=== PATIENT | female | born 1965 | race Two or more races ===

== ENCOUNTER 2016-11-22 00:19 | Emergency (ER) | payer MEDICAID ==
[~2016-11-22] VITALS: Ht 162.6 cm; Wt 113.4 kg
[~2016-11-22 00:19] MED LIST: AMIO200T2 PO; ATOR80TA PO; BENA40TA2 PO; CYCL5TAB PO; HYDR-3326 PO; HYDR25TA4 PO; LISI40TA4 PO; METF500T4 PO; METH4TAB16 PO; NITR0.4T6 SL; Nortriptyline Hcl PO; PRAV40TA3 PO; RIVA10TA PO
[2016-11-22 00:34] VITALS: BP 148/95
== END 2016-11-22 03:04 | disposition left against medical advice (07) ==
LOC: ER 00:19
DX: Z53.21 Procedure and treatment not carried out due to patient leaving prior to being seen by health care provider (principal)
CPT/HCPCS: A4606; Z7610

== ENCOUNTER 2016-12-05 23:50 | Emergency (ER) | payer MEDICAID ==
[~2016-12-05] VITALS: Ht 162.6 cm; Wt 112.5 kg
[2016-12-06] MEDS ORDERED: ASPIRIN 81 MG TAB.CHEW ONE (00:20)
[2016-12-06] MEDS ORDERED: ASPIRIN 81 MG TAB.CHEW PO ONE (00:30)
[2016-12-06 00:39] LABS: BASOPHILS # (AUTO) 0.1 /CMM (0.0-0.2); BASOPHILS % (AUTO) 0.7 % (0.0-2.0); DIFF TOTAL % 100 %; EOSINOPHILS # (AUTO) 0.2 /CMM (0.0-0.7); EOSINOPHILS % (AUTO) 2.6 % (0.0-6.0); HEMATOCRIT 39 % (33-45); HEMOGLOBIN 12.7 g/dL (11.5-14.8); LYMPHOCYTES # (AUTO) 2.5 /CMM (0.8-4.8); LYMPHOCYTES % (AUTO) 27.6 % (20.0-44.0); MEAN CORPUSCULAR HEMOGLOBIN 26 PG (26.0-33.0); MEAN CORPUSCULAR HGB CONC 33 g/dl (31.0-36.0); MEAN CORPUSCULAR VOLUME 79 fL (82-100); MONOCYTES # (AUTO) 0.8 /CMM (0.1-1.30); MONOCYTES % (AUTO) 8.9 % (2.0-12.0); NEUTROPHILS # (AUTO) 5.4 /CMM (1.8-8.9); NEUTROPHILS % (AUTO) 60.2 % (43.0-81.0); PLATELET COUNT (AUTO) 261 /CMM (150-450); RED BLOOD CELL COUNT(AUTO) 4.89 MIL/uL (4.0-5.2); WHITE BLOOD COUNT (AUTO) 8.9 K/uL (4.3-11.0)
[2016-12-06 00:50] LABS: ANION GAP 14 (5-14); CARBON DIOXIDE 26 mmol/L (21-32); CHLORIDE 101 mmol/L (98-107); CREATININE 0.7 mg/dL (0.6-1.3); GFR 88 mL/min (>60); GLUCOSE 136 mg/dL (74-106); POTASSIUM 3.4 mmol/L (3.5-5.1); SODIUM SERUM 137 mmol/L (136-145); UREA NITROGEN, BLOOD 16 mg/dL (7-18)
[2016-12-06 00:55] LABS: INR 1.29 (0.87-1.13)
[2016-12-06 00:59] LABS: TROPONIN I < 0.017 ng/mL (0.00-0.056)
[2016-12-06 04:21] VITALS: BP 131/95
== END 2016-12-06 04:21 | disposition home or self-care (01) ==
LOC: ER 23:53
DX: R07.89 Other chest pain (principal); R94.31 Abnormal electrocardiogram [ECG] [EKG]; I10 Essential (primary) hypertension; F41.9 Anxiety disorder, unspecified; E11.9 Type 2 diabetes mellitus without complications; I48.0 Paroxysmal atrial fibrillation; E66.9 Obesity, unspecified
CPT/HCPCS: 36415; 71010; 80048; 84484 ×2; 85025; 85730; 93005 ×2; 99285; A4606; Z7610

== ENCOUNTER 2016-12-19 09:12 | Emergency (ER) | payer MEDICAID ==
[~2016-12-19] VITALS: Ht 172.7 cm; Wt 112.5 kg
[2016-12-19] MEDS ORDERED: HYDROCODONE/APAP 5/325MG 1 EACH TABLET ONE (09:49)
[2016-12-19] MEDS ORDERED: HYDROCODONE/APAP 5/325MG 1 EACH TABLET PO ONE (10:00)
[2016-12-19 11:31] VITALS: BP 146/97
== END 2016-12-19 11:31 | disposition home or self-care (01) ==
LOC: ER 09:15
DX: M25.461 Effusion, right knee (principal); M17.11 Unilateral primary osteoarthritis, right knee; I10 Essential (primary) hypertension; E11.9 Type 2 diabetes mellitus without complications; I48.91 Unspecified atrial fibrillation
CPT/HCPCS: 73564-TC; 93971-TC; A4606; Z7610

== ENCOUNTER 2017-01-09 23:41 | Emergency (ER) | payer MEDICAID ==
[~2017-01-09] VITALS: Ht 157.5 cm; Wt 81.6 kg
[2017-01-09] MEDS ORDERED: NITROGLYCERIN 0.4 MG/TAB BOTTLE ONE (23:59)
[2017-01-09] MEDS ORDERED: ASPIRIN 81 MG TAB.CHEW ONE (23:59)
[2017-01-10] MEDS ORDERED: NITROGLYCERIN 0.4 MG/TAB BOTTLE SL ONE
[2017-01-10] MEDS ORDERED: ASPIRIN 81 MG TAB.CHEW PO ONE
[2017-01-10 00:09] LABS: BASOPHILS % (AUTO) 0.3 % (0.0-2.0); DIFF TOTAL % 100 %; EOSINOPHILS # (AUTO) 0.2 /CMM (0.0-0.7); EOSINOPHILS % (AUTO) 2.6 % (0.0-6.0); HEMATOCRIT 41 % (33-45); HEMOGLOBIN 13.1 g/dL (11.5-14.8); LYMPHOCYTES # (AUTO) 2.3 /CMM (0.8-4.8); MEAN CORPUSCULAR HEMOGLOBIN 26 PG (26.0-33.0); MEAN CORPUSCULAR HGB CONC 32 g/dl (31.0-36.0); MEAN CORPUSCULAR VOLUME 79 fL (82-100); MONOCYTES # (AUTO) 0.6 /CMM (0.1-1.30); MONOCYTES % (AUTO) 10.8 % (2.0-12.0); NEUTROPHILS # (AUTO) 2.8 /CMM (1.8-8.9); NEUTROPHILS % (AUTO) 47.3 % (43.0-81.0); PLATELET COUNT (AUTO) 242 /CMM (150-450)
[2017-01-10 00:20] LABS: ANION GAP 11 (5-14); CALCIUM, SERUM 8.8 mg/dL (8.5-10.1); CARBON DIOXIDE 32 mmol/L (21-32); CHLORIDE 102 mmol/L (98-107); CREATININE 0.7 mg/dL (0.6-1.3); GFR 88 mL/min (>60); GLUCOSE 112 mg/dL (74-106); SODIUM SERUM 141 mmol/L (136-145); UREA NITROGEN, BLOOD 10 mg/dL (7-18)
[2017-01-10] MEDS ORDERED: MORPHINE SULFATE INJ 4 MG/ML DISP.SYRIN ONE (00:23)
[2017-01-10] MEDS ORDERED: ONDANSETRON HCL/PF 4 MG/2 ML VIAL ONE (00:23)
[2017-01-10 00:27] LABS: TROPONIN I < 0.017 ng/mL (0.00-0.056)
[2017-01-10 00:29] LABS: INR 0.96 (0.87-1.13); PROTHROMBIN TIME 10.4 SECS (9.5-12.7)
[2017-01-10] MEDS ORDERED: ONDANSETRON HCL/PF 4 MG/2 ML VIAL IV ONE (00:30)
[2017-01-10] MEDS ORDERED: MORPHINE SULFATE INJ 2 MG/ML DISP.SYRIN IV ONE (00:30)
[2017-01-10] MEDS ORDERED: POTASSIUM CHLORIDE 20 MEQ TAB.PRT.SR PO ONE ×2 (00:56→01:00)
[2017-01-10 01:36] VITALS: BP 129/68
== END 2017-01-10 01:37 | disposition home or self-care (01) ==
LOC: ER 23:42
DX: F41.9 Anxiety disorder, unspecified (principal); R07.89 Other chest pain; E11.9 Type 2 diabetes mellitus without complications; I10 Essential (primary) hypertension; I48.0 Paroxysmal atrial fibrillation; Z79.01 Long term (current) use of anticoagulants; E66.9 Obesity, unspecified
CPT/HCPCS: 36415; 71010; 80048; 82962; 84484; 85025; 85730; 93005; 99285; A4606 ×2; J2270; J2405; Z7610 ×2

== ENCOUNTER 2017-01-23 09:09 | Inpatient (IN) | payer MEDICAID ==
[~2017-01-23] VITALS: Ht 154.9 cm; Wt 106.1 kg
[2017-01-23] MEDS ORDERED: ASPIRIN 325 MG TABLET PO ONE (09:30)
[2017-01-23] MEDS ORDERED: NITROGLYCERIN PACKET 1 GM PACKET TD ONE (09:30)
[2017-01-23] MEDS ORDERED: ASPIRIN 325 MG TABLET ONE (09:31)
[2017-01-23] MEDS ORDERED: NITROGLYCERIN PACKET 1 GM PACKET ONE (09:31)
[2017-01-23 09:43] LABS: ANION GAP 9 (5-14); BASOPHILS % (AUTO) 0.5 % (0.0-2.0); CALCIUM, SERUM 8.8 mg/dL (8.5-10.1); CARBON DIOXIDE 31 mmol/L (21-32); CHLORIDE 104 mmol/L (98-107); CREATININE 0.7 mg/dL (0.6-1.3); DIFF TOTAL % 100 %; EOSINOPHILS # (AUTO) 0.1 /CMM (0.0-0.7); GFR 87 mL/min (>60); GLUCOSE 112 mg/dL (74-106); HEMATOCRIT 36 % (33-45); HEMOGLOBIN 11.8 g/dL (11.5-14.8); LYMPHOCYTES % (AUTO) 27.6 % (20.0-44.0); MEAN CORPUSCULAR HEMOGLOBIN 26 PG (26.0-33.0); MEAN CORPUSCULAR HGB CONC 33 g/dl (31.0-36.0); MEAN CORPUSCULAR VOLUME 80 fL (82-100); MONOCYTES # (AUTO) 0.6 /CMM (0.1-1.30); MONOCYTES % (AUTO) 8.2 % (2.0-12.0); NEUTROPHILS # (AUTO) 4.6 /CMM (1.8-8.9); NEUTROPHILS % (AUTO) 61.7 % (43.0-81.0); PLATELET COUNT (AUTO) 256 /CMM (150-450); POTASSIUM 3.5 mmol/L (3.5-5.1); RED BLOOD CELL COUNT(AUTO) 4.54 MIL/uL (4.0-5.2); SODIUM SERUM 141 mmol/L (136-145); UREA NITROGEN, BLOOD 16 mg/dL (7-18); WHITE BLOOD COUNT (AUTO) 7.4 K/uL (4.3-11.0)
[2017-01-23 09:52] LABS: TROPONIN I < 0.017 ng/mL (0.00-0.056)
[2017-01-23 10:10] LABS: INR 1.1 (0.87-1.13); PROTHROMBIN TIME 11.9 SECS (9.5-12.7)
[2017-01-23] MEDS ORDERED: METO25TA6 PO (10:10)
[2017-01-23] MEDS ORDERED: AMIO200T2 PO (10:10)
[2017-01-23] MEDS ORDERED: RIVA10TA PO (10:10)
[2017-01-23] MEDS ORDERED: MORPHINE SULFATE INJ 2 MG/ML DISP.SYRIN IV PRN (11:00)
[2017-01-23] MEDS ORDERED: ASPIRIN 81 MG TAB.CHEW PO SCH (11:00)
[2017-01-23] MEDS ORDERED: NITROGLYCERIN 0.4 MG/TAB BOTTLE SL PRN (11:00)
[2017-01-23] MEDS ORDERED: DOCUSATE SODIUM 100 MG CAPSULE PO PRN (11:00)
[2017-01-23] MEDS ORDERED: ONDANSETRON HCL/PF 4 MG/2 ML VIAL IVP PRN (11:00)
[2017-01-23 11:40] VITALS: BP 129/69
[2017-01-23] MEDS: AMIODARONE HCL 200 MG TABLET PO SCH (11:55)
[2017-01-23 12:00] VITALS: BP 123/69
[2017-01-23] MEDS: METFORMIN 500 MG TABLET PO SCH ×2 (12:40→17:30)
[2017-01-23] MEDS: HYDROCHLOROTHIAZIDE 25 MG TABLET PO SCH (12:40)
[2017-01-23] MEDS: CARVEDILOL 6.25 MG TABLET PO SCH ×2 (12:41→21:06)
[2017-01-23] MEDS: LISINOPRIL (20MG) 20 MG TABLET PO SCH (12:42)
[2017-01-23] MEDS: RIVAROXABAN 10 MG TABLET PO SCH (12:47)
[2017-01-23 16:00] VITALS: BP 123/78
[2017-01-23] MEDS ORDERED: METOPROLOL TARTRATE 25 MG TABLET PO SCH (17:00)
[2017-01-23] MEDS ORDERED: ACETAMINOPHEN 325 MG TABLET PO PRN (18:00)
[2017-01-23 19:33] VITALS: BP 123/80
[2017-01-24] VITALS: BP 117/71
[2017-01-24 04:00] VITALS: BP 108/63
[2017-01-24 06:56] LABS: BASOPHILS % (AUTO) 0.4 % (0.0-2.0); DIFF TOTAL % 100 %; EOSINOPHILS # (AUTO) 0.2 /CMM (0.0-0.7); HEMATOCRIT 35 % (33-45); HEMOGLOBIN 11.5 g/dL (11.5-14.8); LYMPHOCYTES # (AUTO) 2.2 /CMM (0.8-4.8); MEAN CORPUSCULAR HEMOGLOBIN 27 PG (26.0-33.0); MEAN CORPUSCULAR HGB CONC 33 g/dl (31.0-36.0); MEAN CORPUSCULAR VOLUME 81 fL (82-100); MONOCYTES # (AUTO) 0.6 /CMM (0.1-1.30); MONOCYTES % (AUTO) 8.8 % (2.0-12.0); NEUTROPHILS # (AUTO) 3.7 /CMM (1.8-8.9); NEUTROPHILS % (AUTO) 54.8 % (43.0-81.0); PLATELET COUNT (AUTO) 246 /CMM (150-450); RED BLOOD CELL COUNT(AUTO) 4.31 MIL/uL (4.0-5.2); WHITE BLOOD COUNT (AUTO) 6.7 K/uL (4.3-11.0)
[2017-01-24 07:13] LABS: CALCIUM, SERUM 8.8 mg/dL (8.5-10.1); CREATININE 0.8 mg/dL (0.6-1.3); INR 1.04 (0.87-1.13); PHOSPHORUS 4.4 mg/dL (2.5-4.9); POTASSIUM 3.5 mmol/L (3.5-5.1); PROTHROMBIN TIME 11.2 SECS (9.5-12.7)
[2017-01-24 08:00] VITALS: BP 120/74
[2017-01-24] MEDS: METFORMIN 500 MG TABLET PO SCH ×2 (08:31→16:58)
[2017-01-24] MEDS: RIVAROXABAN 10 MG TABLET PO SCH (08:31)
[2017-01-24] MEDS: AMIODARONE HCL 200 MG TABLET PO SCH (08:42)
[2017-01-24] MEDS: CARVEDILOL 6.25 MG TABLET PO SCH (08:43)
[2017-01-24] MEDS: HYDROCHLOROTHIAZIDE 25 MG TABLET PO SCH (08:43)
[2017-01-24] MEDS: LISINOPRIL (20MG) 20 MG TABLET PO SCH (08:44)
[2017-01-24 16:00] VITALS: BP 119/76
[2017-01-24] MEDS ORDERED: ATORVASTATIN 40 MG TABLET PO SCH (22:00)
== END 2017-01-24 18:45 | disposition home or self-care (01) | DRG 203 ==
LOC: ER 09:12 → TELE 11:19
PROVIDERS: ADMIT Internal Medicine; ATTEND Internal Medicine
DX: M94.0 Chondrocostal junction syndrome [Tietze] (principal); E44.0 Moderate protein-calorie malnutrition; R00.1 Bradycardia, unspecified; I10 Essential (primary) hypertension; I48.0 Paroxysmal atrial fibrillation; E11.9 Type 2 diabetes mellitus without complications; T46.2X5A Adverse effect of other antidysrhythmic drugs, initial encounter; Y92.009 Unspecified place in unspecified non-institutional (private) residence as the place of occurrence of the external cause; E66.9 Obesity, unspecified; E78.5 Hyperlipidemia, unspecified; Z79.84 Long term (current) use of oral hypoglycemic drugs; F41.9 Anxiety disorder, unspecified; Z79.01 Long term (current) use of anticoagulants; Z68.41 Body mass index [BMI] 40.0-44.9, adult
CPT/HCPCS: 36415; 71010-TC; 80048-TC; 80061-TC; 83735-TC; 84100-TC; 84484-TC; 85025-TC; 85610-TC; 85730-TC; 87081-TC; 93307-TC; A4606; Z7610

== ENCOUNTER 2017-11-03 19:22 | Emergency (ER) | payer MEDICAID ==
[~2017-11-03] VITALS: Ht 157.5 cm; Wt 99.8 kg
[~2017-11-03 19:22] MED LIST changes: -BENA40TA2 PO; -CYCL5TAB PO; -HYDR-3326 PO; -METH4TAB16 PO; +METO25TA6 PO; -NITR0.4T6 SL; -Nortriptyline Hcl PO; -PRAV40TA3 PO
--- NOTE | 2017-11-03 20:00 | NUR ---
PT BIB DAUGHTER C/O COUGH X 1 WK, ON ZOVIRAX FOR SHINGLES. PT AOX3 RR EVEN AND UNLABORED. NO SOB NOTED. NAD NOTED. NO NVD AT THIS TIME. PT GOWNED AND PLACED ON MONITOR WAITING FOR MD GAN.
[2017-11-03] MEDS ORDERED: ALBUTEROL FS 2.5 MG/3 ML VIAL.NEB ONE (20:14)
[2017-11-03] MEDS ORDERED: IPRATROPIUM NEB FS 0.5 MG/2.5 ML AMPUL.NEB ONE (20:14)
[2017-11-03] MEDS ORDERED: ACETAMINOPHEN ES 500 MG TABLET PO ONE (20:30)
[2017-11-03] MEDS ORDERED: ONDANSETRON HCL/PF 4 MG/2 ML VIAL IVP ONE (20:30)
[2017-11-03] MEDS ORDERED: IPRATROPIUM NEB FS 0.5 MG/2.5 ML AMPUL.NEB NEB ONE (20:30)
[2017-11-03] MEDS ORDERED: ALBUTEROL FS 2.5 MG/3 ML VIAL.NEB NEB ONE (20:30)
[2017-11-03] MEDS ORDERED: ACETAMINOPHEN ES 500 MG TABLET ONE (20:37)
[2017-11-03] MEDS ORDERED: ONDANSETRON 4 MG TAB.RAPDIS ONE (20:37)
--- NOTE | 2017-11-03 20:49 | NUR ---
Patient discharged to home in stable condition. Written and verbal after care instructions given. Patient verbalizes understanding of instruction. ambulatory with a steady gait
[2017-11-03 20:50] VITALS: BP 126/57
[2017-11-03] MEDS ORDERED: ONDANSETRON 4 MG TAB.RAPDIS SL ONE (21:00)
== END 2017-11-03 20:50 | disposition home or self-care (01) ==
LOC: ER 19:28
DX: J06.9 Acute upper respiratory infection, unspecified (principal); I10 Essential (primary) hypertension; I48.91 Unspecified atrial fibrillation; E11.9 Type 2 diabetes mellitus without complications; E66.8 Other obesity; Z79.84 Long term (current) use of oral hypoglycemic drugs
CPT/HCPCS: 71010; 94640; 99283; A4606; Q0162

== ENCOUNTER 2017-12-06 22:59 | Emergency (ER) | payer MEDICAID ==
[~2017-12-06] VITALS: Ht 160 cm; Wt 68.0 kg
[2017-12-06 23:10] VITALS: BP 147/63
== END 2017-12-07 00:12 | disposition home or self-care (01) ==
LOC: ER 22:59
DX: B02.29 Other postherpetic nervous system involvement (principal); J06.9 Acute upper respiratory infection, unspecified; E11.9 Type 2 diabetes mellitus without complications; E66.9 Obesity, unspecified; I10 Essential (primary) hypertension; I48.0 Paroxysmal atrial fibrillation
CPT/HCPCS: 71045-TC; A4606; Z7610

== ENCOUNTER 2018-02-02 09:48 | Emergency (ER) | payer MEDICAID ==
[~2018-02-02] VITALS: Ht 165.1 cm; Wt 104.3 kg
[2018-02-02 09:55] VITALS: BP 138/88
== END 2018-02-02 10:35 | disposition home or self-care (01) ==
LOC: ER 09:50
DX: J20.9 Acute bronchitis, unspecified (principal); E11.9 Type 2 diabetes mellitus without complications; E66.9 Obesity, unspecified; I10 Essential (primary) hypertension; I48.0 Paroxysmal atrial fibrillation
CPT/HCPCS: 99283; A4606; Z7610

== ENCOUNTER 2018-04-06 23:56 | Inpatient (IN) | payer MEDICAID ==
[~2018-04-06] VITALS: Ht 162.6 cm; Wt 98.0 kg
[~2018-04-06 23:56] MED LIST changes: -AMIO200T2 PO; +AMIO200T4 PO; +METF-440 PO; -METF500T4 PO
[2018-04-07] VITALS (11 sets, daily range): BP systolic 95–118; BP diastolic 41–69
--- NOTE | 2018-04-07 00:10 | NUR ---
TO BED 9 AMBULATORY C/O L SIDED CHEST PAIN WITH SOB ALL DAY. SKIN WARM, NONDIAPHORETIC. PT AAOX4 NO ACUTE DISTRESS NOTED, RESP EVEN AND UNLABORED. PLACE PT ON CARDIAC MONITORING, CONTINUOUS POX. ER MD AT BEDSIDE TO EVAL PT WITH ORDERS RECEIVED.
[2018-04-07] MEDS ORDERED: DILTIAZEM HCL 25 MG IV ONE (00:24)
--- NOTE | 2018-04-07 00:28 | NUR ---
PT CONVERTED TO NSR-80, ER MD AWARE. ER MD AT BEDSIDE TO RE-EVAL PT. PT VERBALIZE RELIEF OF CHEST PAIN.
[2018-04-07 00:29] LABS: BASOPHILS % (AUTO) 0.4 % (0.0-2.0); EOSINOPHILS % (AUTO) 2.8 % (0.0-6.0); HEMATOCRIT 39 % (33-45); HEMOGLOBIN 13.3 g/dL (11.5-14.8); LYMPHOCYTES # (AUTO) 3.1 /CMM (0.8-4.8); LYMPHOCYTES % (AUTO) 34.6 % (20.0-44.0); MEAN CORPUSCULAR HGB CONC 34 g/dl (31.0-36.0); MEAN CORPUSCULAR VOLUME 80 fL (82-100); MONOCYTES # (AUTO) 0.8 /CMM (0.1-1.30); MONOCYTES % (AUTO) 9.1 % (2.0-12.0); NEUTROPHILS # (AUTO) 4.7 /CMM (1.8-8.9); NEUTROPHILS % (AUTO) 53.1 % (43.0-81.0); PLATELET COUNT (AUTO) 244 /CMM (150-450); RDW COEFFICIENT OF VARIATION 13.9 (11.5-15.0); RED BLOOD CELL COUNT(AUTO) 4.87 MIL/uL (4.0-5.2); WHITE BLOOD COUNT (AUTO) 8.9 K/uL (4.3-11.0)
[2018-04-07] MEDS ORDERED: DILTIAZEM HCL 50 MG IV IV ONE (00:30)
[2018-04-07 00:41] LABS: CARBON DIOXIDE 25 mmol/L (21-32); CHLORIDE 102 mmol/L (98-107); CREATININE 0.8 mg/dL (0.6-1.3); GLUCOSE 163 mg/dL (74-106); POTASSIUM 2.9 mmol/L (3.5-5.1); SODIUM SERUM 140 mmol/L (136-145); UREA NITROGEN, BLOOD 20 mg/dL (7-18)
[2018-04-07 00:44] LABS: INR 0.98 (0.87-1.13)
[2018-04-07 00:48] LABS: TROPONIN I < 0.017 ng/mL (0.00-0.056)
[2018-04-07 00:57] LABS: ALANINE AMINOTRANSFERASE 23 U/L (12-78); ALBUMIN 3.6 g/dL (3.4-5.0); ALKALINE PHOSPHATASE 106 U/L (46-116); ASPARTATE AMINOTRANSFERASE 14 U/L (15-37); B-TYPE NATRIURETIC PEPTIDE 67 PG/ML (0-125); BILIRUBIN,DIRECT 0.1 mg/dL (0.0-0.2); BILIRUBIN,TOTAL 0.2 mg/dL (0.2-1.0)
--- NOTE | 2018-04-07 01:11 | NUR ---
Humble Lima MD Interventional Cardiology called
--- NOTE | 2018-04-07 01:14 | NUR ---
Pilo Lloyd MD Cardiovascular Disease called, md coe is speaking with
[2018-04-07] MEDS ORDERED: POTASSIUM CL. PREMIX PERIPHER. 50 ML ONE (01:15)
[2018-04-07] MEDS ORDERED: NITROGLYCERIN PACKET 1 GM PACKET ONE (01:15)
[2018-04-07] MEDS ORDERED: ASPIRIN 325 MG TABLET ONE (01:15)
--- NOTE | 2018-04-07 01:23 | NUR ---
REPORT CALLED TO CUT OUT OPERATORVERNON GRAYSON. WILL TRANSPORT PT VIA ACLS PROTOCOL.
[2018-04-07] MEDS ORDERED: NITROGLYCERIN PACKET 1 GM PACKET TOP ONE (01:30)
[2018-04-07] MEDS ORDERED: IV NS 0.9% 250 ML BAG IV ONE (01:30)
[2018-04-07] MEDS ORDERED: POTASSIUM CL. PREMIX PERIPHER. 50 ML IV SCH (01:30)
[2018-04-07] MEDS ORDERED: POTASSIUM CHLORIDE 20 MEQ TAB.PRT.SR PO ONE ×2 (01:30→01:53)
[2018-04-07] MEDS ORDERED: ASPIRIN 325 MG TABLET PO ONE (01:30)
[2018-04-07] MEDS: POTASSIUM CL. PREMIX PERIPHER. 50 ML IV SCH ×2 (01:34→02:33)
[2018-04-07] MEDS ORDERED: *INSULIN REGULAR(HUMULIN R)HUM 100 UNIT/ML VIAL SQ PRN (02:00)
[2018-04-07] MEDS ORDERED: MAG HYDROX/AL HYDROX/SIMETH 30 ML UDC PO PRN (02:00)
[2018-04-07] MEDS ORDERED: ONDANSETRON HCL/PF 4 MG/2 ML VIAL IVP PRN (02:00)
[2018-04-07] MEDS ORDERED: DEXTROSE 50%-WATER 50 ML DISP.SYRIN IV PRN (02:00)
[2018-04-07] MEDS ORDERED: INSULIN REGULAR, HUMAN 100 UNIT/ML 3 ML VIAL SQ PRN (02:00)
[2018-04-07] MEDS: NITROGLYCERIN PACKET 1 GM PACKET TOP SCH ×2 (02:00→13:19)
[2018-04-07] MEDS ORDERED: HYDROCODONE/APAP 5/325MG 1 EACH TABLET PO PRN (02:00)
[2018-04-07] MEDS ORDERED: Z GUARD REMEDY 2 OZ OINT TP PRN (02:00)
[2018-04-07] MEDS ORDERED: MAGNESIUM HYDROXIDE 30 ML UDC PO PRN (02:00)
[2018-04-07] MEDS ORDERED: MORPHINE SULFATE INJ 2 MG/ML DISP.SYRIN IV PRN (02:00)
[2018-04-07] MEDS ORDERED: ACETAMINOPHEN 325 MG TABLET PO PRN (02:00)
--- NOTE | 2018-04-07 02:30 | NUR ---
RECEIVED PT FROM ER IN STABLE CONDITION. A, OX4. BREATHING EVENLY. NO SOB. NAD .SKIN WARM AND DRY. DENIED CP. W/ C/O MILD H/A. RECEIVING IV POTASSIUM. IV SITE INTACT AND PATENT W/ NO S/S OF INFILTRATION. MEDICAL INFO AND HX WERE OBTAINED FROM THE PT AND THE DTR AT THE BED SIDE AN TIRE MOLD TESTER. PT WAS PLACED ON THE HEART MONITOR READING SR W/ BBB. NEEDS ATTENDED. BED LOW LOCKED ,CALL LIGHT WITHIN REACH,. WILL CONT TO MONITOR AND WILL F/U W/ MD'S ORDERS.
--- NOTE | 2018-04-07 06:27 | NUR ---
PT IN BED DOZING INTERMITTENTLY. BREATHING EVENLY. NO SOB. NO ACUTE EVENT SINCE ADMISSION. SR W/ BBBs ON TELE MONITOR , DENIED CP AT THIS TIME. NEEDS ATTENDED. CALL LIGHT WITHIN REACH. WILL CONT TO MONITOR AND WILL ENDORSE TO AM SHIFT FOR AKIKO .
[2018-04-07] MEDS: BLOOD SUGAR DIAGNOSTIC 1 EACH STRIP VI SCH ×2 (07:05→12:08)
--- NOTE | 2018-04-07 07:30 | NUR ---
tele retread operator: cardio consult seen and examined by dr. pichardo with orders. pt aware of ct angiogram order and verbalized understanding after md teaching provided. pt will sign the consent as stated with jordanian translating. pt remains npo since midnight. instructed to call for assistance. will continue to monitor.
[2018-04-07] MEDS ORDERED: RIVAROXABAN 10 MG TABLET PO SCH (08:00)
--- NOTE | 2018-04-07 08:30 | NUR ---
m/s environmental services tech: notes consent signed for ct angiogram by pt and verbalized understanding. pt kept npo.
[2018-04-07] MEDS ORDERED: AMIODARONE HCL 200 MG TABLET PO SCH (09:00)
[2018-04-07] MEDS ORDERED: HYDROCHLOROTHIAZIDE 25 MG TABLET PO SCH (09:00)
[2018-04-07] MEDS ORDERED: METOPROLOL TARTRATE 25 MG TABLET PO SCH (09:00)
[2018-04-07] MEDS ORDERED: LISINOPRIL (20MG) 20 MG TABLET PO SCH (09:00)
[2018-04-07] MEDS ORDERED: IV NS 0.9% 500 ML IV ONE (09:47)
[2018-04-07] MEDS ORDERED: CT SWABBABLE VALVE TRANS SET 1 EA INFUS.SET MC ONE (09:47)
[2018-04-07] MEDS ORDERED: IOHEXOL-350 100 ML VIAL IV ONE (09:47)
--- NOTE | 2018-04-07 09:50 | NUR ---
m/s electrical software engineer: notes tele removed as ordered. pt taken down to radiology dept via bed via acls protocol accompanied by licensed staff and tech.
[2018-04-07] MEDS ORDERED: NITROGLYCERIN 0.4 MG/TAB BOTTLE ONE (09:59)
--- NOTE | 2018-04-07 10:20 | NUR ---
m/s tonny: notes pt back from ct angiogram via bed via acls protocol with b/p of 95/55 and hr 55. instructed to call for assistance. if test is negative, pt can go home today, pt aware. Addendum: 04/07/18 at 1025 by KORY LARSON LVN breakfast provided.
--- NOTE | 2018-04-07 12:30 | NUR ---
m/s switchbox assembler: notes ct angio resulted. sofie (lease administration analyst student) made aware and will relay message to dr. kwon as stated.
--- NOTE | 2018-04-07 14:00 | NUR ---
m/s cutter gas: notes in room up and about. no c/o pain or any discomfort. instructed to call for assistance. for d'c planning today. will monitor.
--- NOTE | 2018-04-07 15:00 | NUR ---
m/s photoengraving supervisor: notes received order from dr. kwon to d'c pt home and f/u with pmd in 2 weeks. pt made aware and will call daughter to pick her up.
--- NOTE | 2018-04-07 15:45 | NUR ---
m/s wrapper operator: d'c instructions discharged instructions in macanese given to pt with staff translating. pt will not take metformin med post op ct angio heart for 2 days and will continue rest of meds and will f/u with pmd in two weeks. pt able to read back instructions from staff. h/l removed with tip intact with no swelling, no redness, and no bleeding noted. awaiting for daughter to pick her up.
--- NOTE | 2018-04-07 16:05 | NUR ---
m/s land clearer: discharged discharged home in stable condition with all d'c papers and belongings via private car accompanied by daughter.
[2018-04-07] MEDS ORDERED: ATORVASTATIN 40 MG TABLET PO SCH (22:00)
== END 2018-04-07 16:05 | disposition home or self-care (01) | DRG 198 ==
LOC: ER 23:58 → TELE 04-07 01:26 → MED 04-07 08:30
PROVIDERS: ADMIT Internal Medicine; ATTEND Internal Medicine
DX: I20.0 Unstable angina (principal); I48.0 Paroxysmal atrial fibrillation; E11.9 Type 2 diabetes mellitus without complications; E78.5 Hyperlipidemia, unspecified; E87.6 Hypokalemia; F41.9 Anxiety disorder, unspecified; Z86.19 Personal history of other infectious and parasitic diseases; Z68.37 Body mass index [BMI] 37.0-37.9, adult; Z79.01 Long term (current) use of anticoagulants; E66.9 Obesity, unspecified; Z79.84 Long term (current) use of oral hypoglycemic drugs; Z79.899 Other long term (current) drug therapy
CPT/HCPCS: 36415; 71045-TC; 75574; 80048-TC; 80076-TC; 82962-TC; 83735-TC; 83880; 84443-TC; 84484-TC; 85025-TC; 85730-TC; 87081-TC; A4606; J1815; J3480; J3490; J7040; J7050; Q9967; Z7610

== ENCOUNTER 2018-08-14 23:28 | Inpatient (IN) | payer SELFPAY ==
[~2018-08-14] VITALS: Ht 165.1 cm; Wt 105.2 kg
--- NOTE | 2018-08-14 23:49 | NUR ---
BB NABEEL C/O CP/SOB SINCE MORNING BUT WORSE NOW, RADAITES FROM LEFT TO RIGTH CHEST BURNING SENSATION. X1 NITRO SUBLINGUAL TAKEN LOFTER. SPO2 95%ON RA. SKIN WARM AND DRY. PT DENIES COUGH. -LEG SWELLING. PT PLACED ON COMMERCIAL CRABBER AND POX WITH RAPID A-FIB NOTED ON COMMERCIAL CRABBER. NO S/S OF ACUTE DISTRESS NOTED. RR EVEN AND UNLABORED. MD BEDSIDE FOR EVAL. DAUGHTER BEDSIDE.
[2018-08-14] MEDS ORDERED: ENOXAPARIN SODIUM 80 MG/0.8 ML DISP.SYRIN SQ ONE (23:59)
[2018-08-15] MEDS ORDERED: NITROGLYCERIN PACKET 1 GM PACKET ONE
[2018-08-15] MEDS ORDERED: NITROGLYCERIN PACKET 1 GM PACKET TD ONE
[2018-08-15] MEDS ORDERED: ASPIRIN 81 MG TAB.CHEW PO ONE
[2018-08-15] MEDS ORDERED: ASPIRIN 81 MG TAB.CHEW ONE
[2018-08-15] MEDS ORDERED: ENOXAPARIN SODIUM 60 MG/0.6 ML DISP.SYRIN SQ ONE
[2018-08-15] MEDS ORDERED: DILTIAZEM HCL 25 MG IV IV ONE
[2018-08-15] MEDS ORDERED: ENOXAPARIN SODIUM 30 MG/0.3 ML DISP.SYRIN ONE (00:02)
[2018-08-15 00:10] LABS: BASOPHILS % (AUTO) 0.2 % (0.0-2.0); EOSINOPHILS % (AUTO) 3.3 % (0.0-6.0); HEMATOCRIT 42 % (33-45); HEMOGLOBIN 13.5 g/dL (11.5-14.8); LYMPHOCYTES # (AUTO) 3.2 /CMM (0.8-4.8); MEAN CORPUSCULAR HGB CONC 32 g/dl (31.0-36.0); MEAN CORPUSCULAR VOLUME 83 fL (82-100); MONOCYTES % (AUTO) 10.1 % (2.0-12.0); NEUTROPHILS # (AUTO) 4.9 /CMM (1.8-8.9); NEUTROPHILS % (AUTO) 52.4 % (43.0-81.0); PLATELET COUNT (AUTO) 254 /CMM (150-450); RDW COEFFICIENT OF VARIATION 15.3 (11.5-15.0); WHITE BLOOD COUNT (AUTO) 9.4 K/uL (4.3-11.0)
[2018-08-15 00:20] LABS: CALCIUM, SERUM 8.8 mg/dL (8.5-10.1); CARBON DIOXIDE 25 mmol/L (21-32); CHLORIDE 100 mmol/L (98-107); CREATININE 0.7 mg/dL (0.6-1.3); GLUCOSE 125 mg/dL (74-106); POTASSIUM 3.3 mmol/L (3.5-5.1); SODIUM SERUM 137 mmol/L (136-145); UREA NITROGEN, BLOOD 19 mg/dL (7-18)
[2018-08-15] MEDS ORDERED: DILTIAZEM HCL 25 MG IV ONE ×2 (00:22)
[2018-08-15 00:28] LABS: TROPONIN I < 0.017 ng/mL (0.00-0.056)
[2018-08-15 00:34] LABS: ALANINE AMINOTRANSFERASE 18 U/L (12-78); ALBUMIN 3.7 g/dL (3.4-5.0); ALKALINE PHOSPHATASE 101 U/L (46-116); ASPARTATE AMINOTRANSFERASE 14 U/L (15-37); B-TYPE NATRIURETIC PEPTIDE 115 PG/ML (0-125); BILIRUBIN,DIRECT 0.1 mg/dL (0.0-0.2); BILIRUBIN,TOTAL 0.3 mg/dL (0.2-1.0)
[2018-08-15 00:47] LABS: D-DIMER 0.37 mg/L(FEU (0.17-0.50); INR 0.92 (0.87-1.13)
[2018-08-15] MEDS ORDERED: POTASSIUM CHLORIDE 20 MEQ TAB.PRT.SR PO ONE ×2 (01:00→01:22)
[2018-08-15] MEDS ORDERED: HYDROCODONE/APAP 5/325MG 1 EACH TABLET PO PRN (02:00)
[2018-08-15] MEDS ORDERED: MAG HYDROX/AL HYDROX/SIMETH 30 ML UDC PO PRN (02:00)
[2018-08-15] MEDS ORDERED: DILTIAZEM HCL IV 125 MG in IV NS 0.9% 100 ML IV PRN (02:00)
[2018-08-15] MEDS ORDERED: ZOLPIDEM TARTRATE 5 MG TABLET PO PRN (02:00)
[2018-08-15] MEDS ORDERED: MAGNESIUM HYDROXIDE 30 ML UDC PO PRN (02:00)
[2018-08-15] MEDS ORDERED: DILTIAZEM HCL IV 125 MG in IV D5W 100 ML IV ONE (02:00)
[2018-08-15] MEDS ORDERED: ACETAMINOPHEN 325 MG TABLET PO PRN (02:00)
[2018-08-15] MEDS ORDERED: Z GUARD REMEDY 2 OZ OINT TP PRN (02:00)
[2018-08-15] MEDS ORDERED: ONDANSETRON HCL/PF 4 MG/2 ML VIAL IVP PRN (02:00)
--- NOTE | 2018-08-15 02:01 | NUR ---
REPORT GIVEN TO LEATHA LUA FOR AKIKO
[2018-08-15 02:30] VITALS: BP 136/74
--- NOTE | 2018-08-15 02:30 | NUR ---
RN LEATHA NOTE PATIENT IS AOX3, SPEECH CLEAR, ABLE TO MAKE NEEDS KNOWN, ON TELE AFIB, NO S/SX OF RESPIRATORY OR CARDIAC DISTRESS, WITH 3L O2 VIA NC, 18G RAC PATENT FLUSHING WELL, ON CARDIZIEM DRIP 20MG/HR, CURRENTLY DENIES PAIN, WILL CONTINUE TO MONITOR FOR ANY CHANGES, SAFETY MAINTAINED AT ALL TIMES, BED IN LOW, LOCKED POSITION AND CALL LIGHT WITHIN REACH.
--- NOTE | 2018-08-15 02:47 | NUR ---
RN LEATHA NOTE PT CONVERTED FROM AFIB TO SR WITH BB AT [id number]
[2018-08-15 04:00] VITALS: BP 97/50
--- NOTE | 2018-08-15 04:05 | NUR ---
RN LEATHA NOTE CARDIZEM DRIP D/C PT IN SR HR 60 BP 97/50
[2018-08-15 05:48] LABS: BASOPHILS % (AUTO) 0.3 % (0.0-2.0); EOSINOPHILS % (AUTO) 3.4 % (0.0-6.0); HEMATOCRIT 38 % (33-45); HEMOGLOBIN 12.4 g/dL (11.5-14.8); LYMPHOCYTES # (AUTO) 2.2 /CMM (0.8-4.8); LYMPHOCYTES % (AUTO) 25.5 % (20.0-44.0); MEAN CORPUSCULAR HGB CONC 33 g/dl (31.0-36.0); MEAN CORPUSCULAR VOLUME 82 fL (82-100); MONOCYTES # (AUTO) 0.7 /CMM (0.1-1.30); MONOCYTES % (AUTO) 8.2 % (2.0-12.0); NEUTROPHILS # (AUTO) 5.4 /CMM (1.8-8.9); NEUTROPHILS % (AUTO) 62.6 % (43.0-81.0); PLATELET COUNT (AUTO) 233 /CMM (150-450); RDW COEFFICIENT OF VARIATION 15.8 (11.5-15.0); RED BLOOD CELL COUNT(AUTO) 4.58 MIL/uL (4.0-5.2); WHITE BLOOD COUNT (AUTO) 8.6 K/uL (4.3-11.0)
[2018-08-15 06:10] LABS: TROPONIN I < 0.017 ng/mL (0.00-0.056)
[2018-08-15 06:14] LABS: ALANINE AMINOTRANSFERASE 15 U/L (12-78); ALBUMIN 3.3 g/dL (3.4-5.0); ALKALINE PHOSPHATASE 81 U/L (46-116); ASPARTATE AMINOTRANSFERASE 15 U/L (15-37); B-TYPE NATRIURETIC PEPTIDE 212 PG/ML (0-125); BILIRUBIN,TOTAL 0.4 mg/dL (0.2-1.0); CALCIUM, SERUM 8.6 mg/dL (8.5-10.1); CARBON DIOXIDE 25 mmol/L (21-32); CHLORIDE 102 mmol/L (98-107); CREATININE 0.7 mg/dL (0.6-1.3); GLUCOSE 131 mg/dL (74-106); MAGNESIUM 2.1 mg/dL (1.8-2.4); PHOSPHORUS 4.5 mg/dL (2.5-4.9); POTASSIUM 3.4 mmol/L (3.5-5.1); SODIUM SERUM 138 mmol/L (136-145); TOTAL PROTEIN, SERUM 7.1 g/dL (6.4-8.2); UREA NITROGEN, BLOOD 17 mg/dL (7-18)
--- NOTE | 2018-08-15 07:05 | NUR ---
LEATHA RN NOTES RECEIVED PT ON BED.ALERT/ORIENTED X3.ABLE TO FOLLOW COMMANDS.ON ROOM AIR,RESPIRATION EVEN AND UNLABORED.NO SOB AND ACUTE DISTRESS NOTED.IV LINE IS ON RIGHT AC WITH G18,SITE IS CLEAN.DRY AND INTACT.ON TELE HR IN 6O'S ,SINUS RHYTHM WITH BBB.SAFETY IS MAINTAINED AT ALL TIMES.BED IS IN LOW POSITION AND LOCKED.CALL LIGHT IS WITHIN REACH.WILL CONTINUE TO MONITOR THE PT.
[2018-08-15 08:00] VITALS: BP 98/54
[2018-08-15] MEDS: METFORMIN 500 MG TABLET PO SCH ×2 (08:36→16:16)
[2018-08-15] MEDS ORDERED: AMIODARONE HCL 200 MG TABLET PO SCH (09:00)
[2018-08-15] MEDS ORDERED: LISINOPRIL (20MG) 20 MG TABLET PO SCH (09:00)
[2018-08-15] MEDS ORDERED: Medication Not On Formulary EA (Lisinopril 40 MG) PO SCH (09:00)
[2018-08-15] MEDS ORDERED: HYDROCHLOROTHIAZIDE 25 MG TABLET PO SCH (09:00)
[2018-08-15] MEDS ORDERED: POTASSIUM CHLORIDE 20 MEQ TAB.PRT.SR PO SCH ×2 (11:00→13:00)
[2018-08-15 12:00] VITALS: BP 107/58
[2018-08-15] MEDS: METOPROLOL TARTRATE 25 MG TABLET PO SCH ×2 (12:25→16:16)
[2018-08-15] MEDS ORDERED: WARF2.5T47 PO (15:19)
[2018-08-15] MEDS ORDERED: WARFARIN SODIUM 5 MG TABLET PO ONE (15:30)
[2018-08-15 16:00] VITALS: BP 105/64
[2018-08-15 16:16] VITALS: BP 105/64
[2018-08-15 16:49] LABS: INR 0.96 (0.87-1.13)
[2018-08-15] MEDS ORDERED: RIVAROXABAN 10 MG TABLET PO SCH (17:00)
--- NOTE | 2018-08-15 17:30 | NUR ---
LEATHA RN NOTES DR.NEGRETE LOYA ORDERED FOR DISCHARGE TO [facility].DISCHARGE MEDICATIONS AND INSTRUCTIONS ARE WELL EXPLAINED TO PT AND PT UNDERSTOOD.COUMADIN PRESCRIPTION GOT FROM .IV LINE ON RIGHT FA IS REMOVED AND ASSESSED THE SKIN PRIOR TO DISCHARGE.ALL THE BELONGINGS OF THE PT ARE DONE. Addendum: 08/15/18 at 1817 by ROSALIE FRASER RN CORRECTION PT DISCHARGED HOME. INSTRUCTED GIVE TO PT AND HER DAUGHTER REGARDING FOLLOW UP VISIT WITH [facility] FOR HER COUMADIN AND INR LEVEL. PT VERBALIZES UNDERSTANDING
--- NOTE | 2018-08-15 18:00 | NUR ---
LEATHA RN NOTES PT LEFT FROM ROOM 115(2)WITH ALL HER BELONGINGS. AMBULATORY TO THE MAIN ENTRANCE.ACCOMPANIED BY THE FAMILY.
[2018-08-15] MEDS ORDERED: Medication Not On Formulary EA (Atorvastatin Calcium (Lipitor) 80 MG) PO SCH (22:00)
[2018-08-15] MEDS ORDERED: ATORVASTATIN 40 MG TABLET PO SCH ×2 (22:00)
== END 2018-08-15 18:15 | disposition home or self-care (01) | DRG 308 ==
LOC: ER 23:33 → TELE-TD 08-15 01:39
PROVIDERS: ADMIT Internal Medicine; ATTEND Internal Medicine
DX: I48.91 Unspecified atrial fibrillation (principal); N17.0 Acute kidney failure with tubular necrosis; E44.1 Mild protein-calorie malnutrition; E11.9 Type 2 diabetes mellitus without complications; I10 Essential (primary) hypertension; Z79.01 Long term (current) use of anticoagulants; Z79.84 Long term (current) use of oral hypoglycemic drugs; Z79.899 Other long term (current) drug therapy; E78.5 Hyperlipidemia, unspecified; F41.9 Anxiety disorder, unspecified; Z98.890 Other specified postprocedural states; E87.6 Hypokalemia; E66.01 Morbid (severe) obesity due to excess calories
CPT/HCPCS: 36415; 71045-TC; 80048-TC; 80053-TC; 80076-TC; 83735-TC; 83880; 84100-TC; 84484-TC; 85025-TC; 85378-TC; 85610-TC; 85730-TC; 87081-TC; 93307-TC; A4606; J1650; J3490; J7030; J7060; Z7610

== ENCOUNTER 2018-10-26 13:00 | Emergency (ER) | payer MEDICAID ==
[~2018-10-26] VITALS: Ht 160 cm; Wt 106.1 kg
[~2018-10-26 13:00] MED LIST changes: +WARF2.5T47 PO
[2018-10-26] MEDS ORDERED: ACETAMINOPHEN 325 MG TABLET PO ONE (14:00)
[2018-10-26 14:27] LABS: BILIRUBIN,URINE Negative (NEGATIVE); BLOOD, URINE Moderate Ery/uL (NEGATIVE); COLOR,URINE Yellow (YELLOW); KETONES,URINE Negative (NEGATIVE); LEUKOCYTE ESTERASE ,URINE Small (NEGATIVE); NITRITE, URINE Negative (NEGATIVE); PH,URINE 5.5 (5.0-8.0); PROTEIN,URINE Negative (NEGATIVE); UGLUCOSE Negative (NEGATIVE); UROBILINOGEN,URINE 0.2 EU/dL (0.2)
[2018-10-26] MEDS ORDERED: ACETAMINOPHEN ES 500 MG TABLET ONE (14:36)
[2018-10-26 14:50] LABS: APPEARANCE,URINE HAZY (CLEAR)
[2018-10-26 15:04] LABS: BACTERIA,URINE Many /HPF (None Seen); SQUAMOUS EPITHELIAL CELL,UR Few /HPF (None Seen)
[2018-10-26 15:39] VITALS: BP 140/75
--- NOTE | 2018-10-26 15:40 | NUR ---
For discharge ACI given- Verbalized understanding Home ambulatory in stable condition
== END 2018-10-26 15:42 | disposition home or self-care (01) ==
LOC: ER 13:03
DX: J20.9 Acute bronchitis, unspecified (principal); N39.0 Urinary tract infection, site not specified; I10 Essential (primary) hypertension; I48.91 Unspecified atrial fibrillation; E11.9 Type 2 diabetes mellitus without complications; E66.9 Obesity, unspecified
CPT/HCPCS: 71045-TC; 81000-TC; 87086-TC; 87400; A4606; Z7610

== ENCOUNTER 2018-11-06 05:14 | Emergency (ER) | payer MEDICAID ==
[~2018-11-06] VITALS: Ht 160 cm; Wt 104.3 kg
--- NOTE | 2018-11-06 05:25 | NUR ---
PT [id number] COMPLAINING OF PRODUCTIVE COUGH X1 MONTH. PT STATES SHE HAS GREEN SPUTUM, BUT HAS DIFFICULTY SWALLOWING SPUTUM, CAUSING HER TO VOMIT OCCASIONALLY. PT DENIES SOB, CHEST PAIN, FEVER. PT IS AAOX4. VITAL SIGNS STABLE. PT APPEARS UNCOMFORTABLE. PLACED ON MONITOR, WILL CONTINUE TO MONITOR.
--- NOTE | 2018-11-06 05:51 | NUR ---
RADIOLOGY AT BEDSIDE FOR CXR
--- NOTE | 2018-11-06 06:31 | NUR ---
Patient discharged to home in stable condition. Written and verbal after care instructions given. Patient verbalizes understanding of instruction. Pt ambulatory with a steady gait
[2018-11-06 06:32] VITALS: BP 127/69
== END 2018-11-06 06:33 | disposition home or self-care (01) ==
LOC: ER 05:17
DX: R05 Cough (principal); I10 Essential (primary) hypertension; I48.91 Unspecified atrial fibrillation; E11.9 Type 2 diabetes mellitus without complications; Z79.01 Long term (current) use of anticoagulants; Z79.84 Long term (current) use of oral hypoglycemic drugs; Z79.899 Other long term (current) drug therapy
CPT/HCPCS: 71045-TC; A4606; Z7610

== ENCOUNTER 2019-07-22 11:37 | Emergency (ER) | payer MEDICAID ==
[~2019-07-22] VITALS: Ht 157.5 cm; Wt 108.4 kg
--- NOTE | 2019-07-22 12:26 | NUR ---
PATIENT ARRIVED AT UNIT AMBULATORY, A/O X 4, WITH LEFT INDEX FINGER PAIN AND SWELLING X 8 DAYS. REPORTS HAVING IT CUT ON THE BLADE ON THE SINK. NO BLEEDING OR DRAINAGE NOTED FROM FINGER. PATIENT RESTING ON BED. WILL CONTINUE TO MONITOR
[2019-07-22] MEDS ORDERED: CEPHALEXIN MONOHYDRATE 500 MG CAPSULE PO ONE ×2 (12:30→12:44)
[2019-07-22] MEDS ORDERED: DOXYCYCLINE HYCLATE (100 MG) 100 MG TABLET PO ONE (12:30)
[2019-07-22] MEDS ORDERED: KETOROLAC TROMETHAMINE INJ 30 MG/ML VIAL IM ONE (12:30)
[2019-07-22] MEDS ORDERED: KETOROLAC TROMETHAMINE INJ 30 MG/ML VIAL ONE (12:44)
[2019-07-22] MEDS ORDERED: DOXYCYCLINE HYCLATE (100 MG) 100 MG TABLET ONE (12:44)
[2019-07-22 12:53] VITALS: BP 132/77
--- NOTE | 2019-07-22 12:53 | NUR ---
Patient discharged to home in stable condition. Written and verbal after care instructions given. Written prescription provided to patient. Patient verbalizes understanding of instruction.
== END 2019-07-22 12:54 | disposition home or self-care (01) ==
LOC: ER 11:37
DX: L03.012 Cellulitis of left finger (principal); I10 Essential (primary) hypertension; I48.91 Unspecified atrial fibrillation; E11.9 Type 2 diabetes mellitus without complications; E66.9 Obesity, unspecified; Z79.01 Long term (current) use of anticoagulants; Z68.41 Body mass index [BMI] 40.0-44.9, adult
CPT/HCPCS: 96372; 99283; J1885

== ENCOUNTER 2020-01-22 22:09 | Inpatient (IN) | payer MEDICAID ==
[~2020-01-22] VITALS: Ht 162.6 cm; Wt 118.4 kg
--- NOTE | 2020-01-22 22:15 | NUR ---
PT CAME INTO THE ED C/O MIDSTERNAL CHESTPAIN WORST TONIGHT AT 1930. PRESSURE LIKE BURNING 5/10 ON AND OFF. PT PLACED ON O2.2 LITERS NC SATTING 98%. PAIN WORSENS WHEN PATIENT IS LAYING FLAT OR SITTING. PT AAOX4, CONNECTED TO THE MASTER GLAZIER AND POX. IV LINE ESTABLISHED. BLOOD DRAWN AND SENT TO LAB/
[2020-01-22] MEDS ORDERED: AMIODARONE 150 MG/3 ML VIAL IV ONE ×3 (22:26→22:32)
[2020-01-22] MEDS ORDERED: NITROGLYCERIN 0.4 MG/TAB BOTTLE SL ONE (22:30)
[2020-01-22] MEDS ORDERED: NITROGLYCERIN PACKET 1 GM PACKET TD ONE (22:30)
[2020-01-22] MEDS: AMIODARONE 150 MG/3 ML VIAL IV ONE (22:35)
[2020-01-22] MEDS ORDERED: NITROGLYCERIN 0.4 MG/TAB BOTTLE ONE (22:36)
[2020-01-22] MEDS ORDERED: NITROGLYCERIN PACKET 1 GM PACKET ONE (22:37)
[2020-01-22 22:40] LABS: BASOPHILS % (AUTO) 0.3 % (0.0-2.0); EOSINOPHILS % (AUTO) 1.9 % (0.0-6.0); HEMATOCRIT 40 % (33-45); HEMOGLOBIN 13.2 g/dL (11.5-14.8); LYMPHOCYTES % (AUTO) 27.8 % (20.0-44.0); MEAN CORPUSCULAR HGB CONC 33 g/dl (31.0-36.0); MEAN CORPUSCULAR VOLUME 85 fL (82-100); MONOCYTES # (AUTO) 0.9 /CMM (0.1-1.30); MONOCYTES % (AUTO) 8.6 % (2.0-12.0); NEUTROPHILS # (AUTO) 6.7 /CMM (1.8-8.9); NEUTROPHILS % (AUTO) 61.4 % (43.0-81.0); PLATELET COUNT (AUTO) 249 /CMM (150-450); RED BLOOD CELL COUNT(AUTO) 4.73 MIL/uL (4.0-5.2); WHITE BLOOD COUNT (AUTO) 10.9 K/uL (4.3-11.0)
[2020-01-22] MEDS ORDERED: METOPROLOL TARTRATE INJ 5 MG/5 ML AMPUL ONE ×2 (22:43→23:50)
--- NOTE | 2020-01-22 22:45 | NUR ---
2ND TABLET OF NITRO HELD BP NOTED 108/56. MD MADE AWARE
[2020-01-22 22:49] LABS: CALCIUM, SERUM 9.1 mg/dL (8.5-10.1); CARBON DIOXIDE 26 mmol/L (21-32); CHLORIDE 106 mmol/L (98-107); CREATININE 0.8 mg/dL (0.6-1.3); GLUCOSE 254 mg/dL (74-106); POTASSIUM 3.1 mmol/L (3.5-5.1); SODIUM SERUM 144 mmol/L (136-145); UREA NITROGEN, BLOOD 25 mg/dL (7-18)
[2020-01-22] MEDS ORDERED: METOPROLOL TARTRATE INJ 5 MG/5 ML AMPUL IV ONE (23:00)
[2020-01-22 23:05] LABS: D-DIMER 0.19 mg/L(FEU (0.17-0.50)
[2020-01-22 23:16] LABS: ALANINE AMINOTRANSFERASE 25 U/L (12-78); ALBUMIN 3.4 g/dL (3.4-5.0); ALKALINE PHOSPHATASE 106 U/L (46-116); ASPARTATE AMINOTRANSFERASE 21 U/L (15-37); B-TYPE NATRIURETIC PEPTIDE 94 PG/ML (0-125); BILIRUBIN,DIRECT 0.1 mg/dL (0.0-0.2); BILIRUBIN,TOTAL 0.4 mg/dL (0.2-1.0); TOTAL PROTEIN, SERUM 7.4 g/dL (6.4-8.2)
[2020-01-22] MEDS ORDERED: HYDROMORPHONE 1 MG/1 ML DISP.SYRIN ONE (23:20)
--- NOTE | 2020-01-22 23:20 | NUR ---
PT'S PAIN 6/10 BURNING. MD MADE AWARE. ORDERS RECEIVED
--- NOTE | 2020-01-22 23:25 | NUR ---
RICHAR PT'S DAUGHTER
--- NOTE | 2020-01-22 23:28 | NUR ---
CALLED [facility], DR NOVOA PAGED
[2020-01-22] MEDS ORDERED: HYDROMORPHONE INJ 0.5 MG/0.5 ML SYRINGE IV ONE (23:30)
[2020-01-22] MEDS ORDERED: HYDROMORPHONE 1 MG/1 ML DISP.SYRIN IV ONE (23:30)
--- NOTE | 2020-01-22 23:44 | NUR ---
DR NOVOA AT BEDSIDE
--- NOTE | 2020-01-23 00:05 | NUR ---
RN LEATHA NOTES RECEIVED REPORT FROM ER NURSE BLAZE JUNIOR FOR AKIKO
--- NOTE | 2020-01-23 00:21 | NUR ---
REPORT GIVEN TO VERNON VU
[2020-01-23] MEDS ORDERED: ONDANSETRON HCL/PF 4 MG/2 ML VIAL IVP PRN (00:30)
[2020-01-23] MEDS ORDERED: HYDROCODONE/APAP 5/325MG 1 EACH TABLET PO PRN (00:30)
[2020-01-23] MEDS ORDERED: MAGNESIUM HYDROXIDE 30 ML UDC PO PRN (00:30)
[2020-01-23] MEDS ORDERED: MAG HYDROX/AL HYDROX/SIMETH 30 ML UDC PO PRN (00:30)
[2020-01-23] MEDS ORDERED: DEXTROSE 50%-WATER 50 ML DISP.SYRIN IV PRN (00:30)
[2020-01-23] MEDS ORDERED: Z GUARD REMEDY 2 OZ OINT TP PRN (00:30)
[2020-01-23] MEDS ORDERED: METOPROLOL TARTRATE INJ 5 MG/5 ML AMPUL IVP PRN (00:30)
--- NOTE | 2020-01-23 00:48 | NUR ---
PT TRANSFERRED TO ROOM IN STABLE CONDITION VIA ACLS PROTOCOL
--- NOTE | 2020-01-23 00:55 | NUR ---
0055 ADMITTED FROM ER 55 YEAR OLD FEMALE WITH DX A-FIB RVR VIA GURNEY. AAOX4, ABLE TO SPEAK/UNDERSTAND MINIMAL AZERI. ABLE TO AMBULATE WITH ASSIST TO BATHROOM. RECEIVED ON AMIODARONE GTT INFUSING AT 1MG/MIN TO RIGHT AC PERIPHERAL IV. NO SIGNS OF INFILTRATION NOTED. ASSISTED BACK TO BED. ADMISSION CARE AND ASSESSMENT DONE. VITAL SIGNS TAKEN ACCORDINGLY. PATIENT DENIES CHEST PAIN AND SHORTNESS OF BREATH WHEN ASKED. KEPT ON O2 AT 2LPM PER NC. NSR NOTED WHEN CONNECTED TO HEART MONITOR. HR IN THE 60'S-70'S WITH NO ECTOPIES. CALL LIGHT PLACED WITHIN REACH AND INSTRUCTED TO CALL FOR ASSISTANCE.
[2020-01-23 01:00] VITALS: BP 109/63
--- NOTE | 2020-01-23 01:00 | NUR ---
RN LEATHA NOTES LOPRESSOR ORAL NOT GIVEN D/T PT RECEIVED LOPRESSOR IV @ 0003 AND LATEST BP IS 109/63 HR 70 AND PT IS ON AMIODARONE DRIP
--- NOTE | 2020-01-23 01:45 | NUR ---
0145 DR NOVOA MADE AWARE THAT PATIENT HAS CONVERTED TO NSR WITH BBB, HR IN THE 70S WHEN RECEIVED FROM ER, WITH ORDER TO CONTINUE AMIODARONE DRIP ORDERED.
[2020-01-23 04:00] VITALS: BP 101/47
--- NOTE | 2020-01-23 05:00 | NUR ---
POUND KEEPER NOTES AMIODARONE DRIP ADJUSTED TO 0.5mg/hr
--- NOTE | 2020-01-23 07:27 | NUR ---
RN CLOSING NOTES PT ASLEEP AT THE MOMENT NO COMPLAINT OF CHEST PAIN OR SOB, NO SIGN OF SYMPTOMS OF RESPIRATORY DISTRESS, O2 SAT >92% WITH O2 3L VIA NC. STILL ON AMIODARONE DRIP @ 0.5mg/hr. ON TELE MONITOR WITH READING SR 60'S -70'S, ALL NEEDS ATTENDED WILL ENDORSED TO AM SHIFT NURSE FOR AKIKO
[2020-01-23] MEDS ORDERED: AMIODARONE 900 MG in IV D5W 482 ML IV PRN (07:30)
[2020-01-23] MEDS: BLOOD SUGAR DIAGNOSTIC 1 EACH STRIP VI SCH ×4 (07:48→21:02)
[2020-01-23 08:00] VITALS: BP 106/57
--- NOTE | 2020-01-23 08:01 | NUR ---
RN OPENING NOTE RECEIVED PT AWAKE IN BED HOB ELEVATED. AO X4 NORTH KOREAN SPEAKING. NC ON 3L. NO SIGNS OF DISTRESS. RAC AND L HAND IV LINE IN PLACE AND PATENT. AMIODARONE DRIP RUNNING @ 0.5MG/MIN. COMPLAINS OF HEADACHE, BUT NO CHEST PAIN. HEART AND LUNG SOUNDS WITHIN NORMAL LIMITS. WILL GIVE TYLENOL ORDERED AND MONITOR. SAFETY MEASURE IMPLEMENTED. BED ON LOWEST AND LOCKED POSITION. CALL LIGHT WITHIN REACH. WILL CONT TO MONITOR.
[2020-01-23] MEDS: METFORMIN 500 MG TABLET PO SCH ×2 (08:13→17:26)
[2020-01-23] MEDS: ACETAMINOPHEN 325 MG TABLET PO PRN (08:13)
[2020-01-23] MEDS: LISINOPRIL (20MG) 20 MG TABLET PO SCH (08:13)
[2020-01-23] MEDS: HYDROCHLOROTHIAZIDE 25 MG TABLET PO SCH (08:13)
[2020-01-23] MEDS: RIVAROXABAN 10 MG TABLET PO SCH (08:14)
[2020-01-23] MEDS: METOPROLOL TARTRATE 25 MG TABLET PO SCH ×3 (08:15→17:26)
[2020-01-23] MEDS: ATORVASTATIN 40 MG TABLET PO SCH (08:16)
--- NOTE | 2020-01-23 08:21 | NUR ---
RN NOTES AM DOSE OF METOPROLOL HELD. PT HR WAS 60 BPM AND SHE IS ON AMIODARONE DRIP, WILL CONTINUE TO MONITOR FOR ANY CHANGES.
[2020-01-23 09:32] LABS: BASOPHILS % (AUTO) 0.6 % (0.0-2.0); EOSINOPHILS % (AUTO) 3.3 % (0.0-6.0); HEMATOCRIT 35 % (33-45); HEMOGLOBIN 11.6 g/dL (11.5-14.8); LYMPHOCYTES # (AUTO) 1.8 /CMM (0.8-4.8); LYMPHOCYTES % (AUTO) 28.3 % (20.0-44.0); MEAN CORPUSCULAR HGB CONC 33 g/dl (31.0-36.0); MEAN CORPUSCULAR VOLUME 84 fL (82-100); MONOCYTES # (AUTO) 0.5 /CMM (0.1-1.30); MONOCYTES % (AUTO) 8.1 % (2.0-12.0); NEUTROPHILS # (AUTO) 3.8 /CMM (1.8-8.9); NEUTROPHILS % (AUTO) 59.7 % (43.0-81.0); PLATELET COUNT (AUTO) 205 /CMM (150-450); RED BLOOD CELL COUNT(AUTO) 4.19 MIL/uL (4.0-5.2); WHITE BLOOD COUNT (AUTO) 6.4 K/uL (4.3-11.0)
[2020-01-23 09:43] LABS: CARBON DIOXIDE 24 mmol/L (21-32); CHLORIDE 103 mmol/L (98-107); CREATININE 0.8 mg/dL (0.6-1.3); GLUCOSE 198 mg/dL (74-106); SODIUM SERUM 140 mmol/L (136-145); UREA NITROGEN, BLOOD 23 mg/dL (7-18)
[2020-01-23 09:49] LABS: ALANINE AMINOTRANSFERASE 20 U/L (12-78); ALBUMIN 2.8 g/dL (3.4-5.0); ALKALINE PHOSPHATASE 79 U/L (46-116); ASPARTATE AMINOTRANSFERASE 17 U/L (15-37); BILIRUBIN,TOTAL 0.4 mg/dL (0.2-1.0); MAGNESIUM 1.7 mg/dL (1.8-2.4); PHOSPHORUS 3.6 mg/dL (2.5-4.9); TOTAL PROTEIN, SERUM 6.2 g/dL (6.4-8.2)
[2020-01-23 09:57] LABS: CHOLESTEROL 121 mg/dL (<200); HDL CHOLESTEROL 38 mg/dL (40-60); LDL 73 mg/dL (0-99); THYROID STIMULATING HORMONE 3.239 uIU/mL (0.358-3.74); TRIGLYCERIDES 129 mg/dL (30-150)
[2020-01-23] MEDS: POTASSIUM CHLORIDE 20 MEQ TAB.PRT.SR PO SCH ×3 (10:17→11:57)
[2020-01-23] MEDS: AMIODARONE HCL 200 MG TABLET PO SCH ×2 (10:17→17:26)
[2020-01-23] MEDS ORDERED: MAGNESIUM OXIDE 400 MG TABLET PO ONE (11:30)
[2020-01-23] MEDS: INSULIN REGULAR, HUMAN 100 UNIT/ML 3 ML VIAL SQ PRN (11:54)
[2020-01-23 12:00] VITALS: BP 120/63
--- NOTE | 2020-01-23 14:04 | NUR ---
RN NOTES REPORT GIVEN TO KT JUNIOR FOR AKIKO
[2020-01-23 16:00] VITALS: BP_SYST 110; BP_DIAS 60; BP_DIAS 68
--- NOTE | 2020-01-23 19:00 | NUR ---
RECIEVED IN BED ALERT AND ORIENTATED SMILING. MAIN LANGUAGE ALBANIAN BEING HER FIRST LANGUAGE BUT WITH A GOOD UNDERSTANDING OF ENGLIS. DENIES SOB OR PAIN.
[2020-01-23] MEDS: *INSULIN REGULAR(HUMULIN R)HUM 100 UNIT/ML VIAL SQ PRN (21:09)
[2020-01-24 01:08] VITALS: BP 118/54
[2020-01-24 04:31] VITALS: BP 117/65
--- NOTE | 2020-01-24 05:52 | NUR ---
ENDING NOTES: WHEN AWAKE SEEN HER WATCHING TV A RUSSIAN STATION. WHEN SPEAKING TO HER SHE STATES SHE IS COMFORTABLE NO SOB NO C/P. SKIN WARM AND DRY. B/P WITHIN NORMAL RANGE
[2020-01-24 06:52] LABS: CALCIUM, SERUM 8.3 mg/dL (8.5-10.1); CREATININE 0.7 mg/dL (0.6-1.3); PHOSPHORUS 3.8 mg/dL (2.5-4.9); POTASSIUM 3.6 mmol/L (3.5-5.1)
--- NOTE | 2020-01-24 07:20 | NUR ---
RN OPENING NOTE RECEIVED PT AWAKE IN BED HOB ELEVATED. ON 3L NC TOLERATING WELL. NO SIGNS OF DISTRESS. AO X4. GREENLANDIC SPEAKING UNDERSTANDS A LOT OF LITHUANIAN. COMPLAINS OF PAIN ON HER LEGS, PER PATIENT IT IS HER ARTHRITIS. SKIN INTACT. IV LINE PRESENT ON L HAND AND R AC. SAFETY MEASURES IMPLEMENTED. CALL LIGHT WITHIN REACH. BED ON LOWEST AND LOCKED POSITION. WILL CONTINUE TO MONITOR.
[2020-01-24] MEDS: BLOOD SUGAR DIAGNOSTIC 1 EACH STRIP VI SCH ×2 (07:56→11:37)
[2020-01-24 08:00] VITALS: BP 129/60
[2020-01-24 08:06] LABS: BASOPHILS % (AUTO) 0.6 % (0.0-2.0); EOSINOPHILS % (AUTO) 3.6 % (0.0-6.0); HEMATOCRIT 37 % (33-45); HEMOGLOBIN 12.1 g/dL (11.5-14.8); LYMPHOCYTES % (AUTO) 33.1 % (20.0-44.0); MEAN CORPUSCULAR HGB CONC 33 g/dl (31.0-36.0); MEAN CORPUSCULAR VOLUME 84 fL (82-100); MONOCYTES # (AUTO) 0.6 /CMM (0.1-1.30); NEUTROPHILS # (AUTO) 3.3 /CMM (1.8-8.9); NEUTROPHILS % (AUTO) 53.7 % (43.0-81.0); PLATELET COUNT (AUTO) 194 /CMM (150-450); RED BLOOD CELL COUNT(AUTO) 4.36 MIL/uL (4.0-5.2); WHITE BLOOD COUNT (AUTO) 6.1 K/uL (4.3-11.0)
[2020-01-24] MEDS: *INSULIN REGULAR(HUMULIN R)HUM 100 UNIT/ML VIAL SQ PRN (08:43)
[2020-01-24] MEDS: AMIODARONE HCL 200 MG TABLET PO SCH (08:50)
[2020-01-24] MEDS: RIVAROXABAN 10 MG TABLET PO SCH (08:56)
[2020-01-24] MEDS: ACETAMINOPHEN 325 MG TABLET PO PRN (08:57)
[2020-01-24] MEDS: ATORVASTATIN 40 MG TABLET PO SCH (08:57)
[2020-01-24] MEDS: METFORMIN 500 MG TABLET PO SCH (08:58)
[2020-01-24 09:00] VITALS: BP 126/60
[2020-01-24] MEDS: HYDROCHLOROTHIAZIDE 25 MG TABLET PO SCH (09:00)
[2020-01-24] MEDS: LISINOPRIL (20MG) 20 MG TABLET PO SCH ×2 (09:00→09:01)
[2020-01-24] MEDS: METOPROLOL TARTRATE 25 MG TABLET PO SCH (09:00)
--- NOTE | 2020-01-24 09:03 | NUR ---
RN NOTE HELD BP MED LISINOPRIL, HYDROCHLOROTHIAZIDE, AND METOPROLOL HR IS 60 BPM.
[2020-01-24] MEDS: INSULIN REGULAR, HUMAN 100 UNIT/ML 3 ML VIAL SQ PRN (11:40)
--- NOTE | 2020-01-24 11:47 | NUR ---
RN ALLERGY NOTE PT WAS GIVEN DISCHARGE INSTRUCTIONS. INFORMED TO FOLLOW UP WITH HORTICULTURAL WORKER. GAVE DIET INSTRUCTIONS. TRANSLATED IN LIBERIAN BY KAYLENE REDDY. GIVEN LIST OF ADMINISTERED AM MEDICATIONS. PT EXPRESSED UNDERSTANDING. GAVE INSULIN 2UNITS AND PUDDING. PT CANNOT EAT LUNCH NOW DUE TO DAUGHTER NEED TO PICK HER UP IN 15 MINS. HEPLOCK REMOVED. TOLERATED WELL. NO HEAVY BLEEDING NOTED. DRESSING AND DIRECT PRESSURE APPLIED. NO CO OF PAIN OR DISCOMFORT. WILL WAIT FOR PRIVATE CAR FOR STEAM SHOVEL OILER.
--- NOTE | 2020-01-24 12:13 | NUR ---
GOLF CADDY NOTE ESCORTED PT TO THE FRONT OF THE HOSPITAL. PICKED UP BY DAUGHTER ROCÍO ON [address] [employer] [address]. PATIENT IS STABLE ABLE TO WALK ON HER OWN.
== END 2020-01-24 12:11 | disposition home or self-care (01) | DRG 201 ==
LOC: ER 22:14 → TELE1 23:48 → TELE-TD 01-23 01:15 → MEDSG1 01-23 10:27
PROVIDERS: ADMIT Internal Medicine; ATTEND Nurse Practitioner Acute Care
DX: I48.20 Chronic atrial fibrillation, unspecified (principal); N17.0 Acute kidney failure with tubular necrosis; I11.0 Hypertensive heart disease with heart failure; E44.0 Moderate protein-calorie malnutrition; E66.01 Morbid (severe) obesity due to excess calories; E83.42 Hypomagnesemia; I50.32 Chronic diastolic (congestive) heart failure; F41.9 Anxiety disorder, unspecified; E87.6 Hypokalemia; F32.9 Major depressive disorder, single episode, unspecified; E78.5 Hyperlipidemia, unspecified; E11.9 Type 2 diabetes mellitus without complications; Z79.84 Long term (current) use of oral hypoglycemic drugs; Z79.899 Other long term (current) drug therapy; Z68.42 Body mass index [BMI] 45.0-49.9, adult; Z79.01 Long term (current) use of anticoagulants
CPT/HCPCS: 36415; 71045-TC; 80048-TC; 80053-TC; 80061-TC; 80076-TC; 82962-TC; 83735-TC; 83880; 84100-TC; 84439-TC; 84443-TC; 84484-TC; 85025-TC; 85378-TC; 85730-TC; 93307-TC; G0378; J0282; J1170; J1815; J3490; J7060

== ENCOUNTER 2020-02-25 01:26 | Inpatient (IN) | payer MEDICAID ==
[~2020-02-25] VITALS: Ht 160 cm; Wt 122.5 kg
[~2020-02-25 01:26] MED LIST changes: -WARF2.5T47 PO
--- NOTE | 2020-02-25 01:40 | NUR ---
PT BIB GRAND DAUGHTER. PT C/O SOB AND CP SINCE 8PM. PER GD PT WAS POSITIVE FOR COVID X2 WEEKS BUT HAS BEEN CLEARED BY MD. PT WAS DIAGNOSED WITH AFIB AND CP PER GD BUT STILL PRESENTS WITH CP. PT PLACED IN BED 6, ON MONITOR AND PULSE OX. VSS. SAT 98% ON ROOM AIR. EMT AT BEDSIDE FOR EKG. WILL INTIATED LINE AND CHEST PAIN WORK UP. AWAITING MD FOR EVAL AND ORDERS.
--- NOTE | 2020-02-25 01:41 | NUR ---
MD ARGUETA AT BEDSIDE FOR EVAL.
[2020-02-25] MEDS ORDERED: MORPHINE SULFATE INJ 4 MG/ML DISP.SYRIN ONE ×2 (01:42→02:54)
[2020-02-25] MEDS ORDERED: ONDANSETRON HCL/PF 4 MG/2 ML VIAL ONE (01:42)
--- NOTE | 2020-02-25 01:45 | NUR ---
PT STATED SHE TOOK 2NITRO SL. SEWING DEMONSTRATOR. VSS.
--- NOTE | 2020-02-25 01:48 | NUR ---
SOCIAL INSURANCE SPECIALIST AT BEDSIDE FOR LAB COLLECTION
[2020-02-25 01:55] LABS: BASOPHILS # (AUTO) 0.1 /CMM (0.0-0.2); BASOPHILS % (AUTO) 0.7 % (0.0-2.0); EOSINOPHILS % (AUTO) 1.4 % (0.0-6.0); HEMATOCRIT 37 % (33-45); HEMOGLOBIN 12.3 g/dL (11.5-14.8); LYMPHOCYTES # (AUTO) 2.6 /CMM (0.8-4.8); LYMPHOCYTES % (AUTO) 29.8 % (20.0-44.0); MEAN CORPUSCULAR HGB CONC 34 g/dl (31.0-36.0); MEAN CORPUSCULAR VOLUME 83 fL (82-100); MONOCYTES # (AUTO) 0.9 /CMM (0.1-1.30); MONOCYTES % (AUTO) 9.9 % (2.0-12.0); NEUTROPHILS % (AUTO) 58.2 % (43.0-81.0); PLATELET COUNT (AUTO) 473 /CMM (150-450); RED BLOOD CELL COUNT(AUTO) 4.41 MIL/uL (4.0-5.2); WHITE BLOOD COUNT (AUTO) 8.6 K/uL (4.3-11.0)
[2020-02-25] MEDS ORDERED: NITROGLYCERIN 0.4 MG/TAB BOTTLE SL ONE (02:00)
[2020-02-25] MEDS ORDERED: ONDANSETRON HCL/PF - ER 4 MG/2 ML VIAL IV ONE (02:00)
[2020-02-25] MEDS ORDERED: MORPHINE SULFATE INJ 2 MG/ML DISP.SYRIN IV ONE ×2 (02:00→03:00)
[2020-02-25] MEDS ORDERED: NITR100C6 PO (02:04)
[2020-02-25] MEDS ORDERED: METO25TA4 PO (02:04)
[2020-02-25] MEDS ORDERED: LOSA25TA27 PO (02:04)
[2020-02-25] MEDS ORDERED: CYAN250014 PO (02:04)
[2020-02-25] MEDS ORDERED: NITR0.4T SL (02:04)
--- NOTE | 2020-02-25 02:07 | NUR ---
ALLIGATOR TRAPPER AT BEDSIDE FOR XRAY.
[2020-02-25 02:13] LABS: CARBON DIOXIDE 27 mmol/L (21-32); CHLORIDE 100 mmol/L (98-107); GLUCOSE 120 mg/dL (74-106); SODIUM SERUM 138 mmol/L (136-145); UREA NITROGEN, BLOOD 10 mg/dL (7-18)
--- NOTE | 2020-02-25 02:13 | NUR ---
MED RECON DONE. PT DAUGHTER (NOT GRAND DAUGHTER) AWARE PT WILL BE ADMITTED. VSS.
[2020-02-25 02:14] LABS: CREATININE 0.8 mg/dL (0.6-1.3); POTASSIUM 2.7 mmol/L (3.5-5.1)
--- NOTE | 2020-02-25 02:16 | NUR ---
POTASSIUM 2.7 CRITICAL.
[2020-02-25 02:18] LABS: B-TYPE NATRIURETIC PEPTIDE 50 PG/ML (0-125)
[2020-02-25] MEDS ORDERED: POTASSIUM CHLORIDE 20 MEQ TAB.PRT.SR PO ONE ×4 (02:20→02:30)
--- NOTE | 2020-02-25 02:52 | NUR ---
POTASSIUM GIVEN. PT C/O PAIN, PAIN MEDS GIVEN WELL.
--- NOTE | 2020-02-25 03:17 | NUR ---
RESTING COMFORTABLY. VSS. PROVIDED WITH BLANKETS.
--- NOTE | 2020-02-25 05:06 | NUR ---
PT ASLEEP, EASILY AROUSED. VSS.
--- NOTE | 2020-02-25 05:28 | NUR ---
PANEL PAGED PER ER MD ORDER.
--- NOTE | 2020-02-25 05:56 | NUR ---
ER TALKING TO CHUCK VAUGHAN REGARDING PT ADMISSION.
--- NOTE | 2020-02-25 06:19 | NUR ---
REPORT GIVEN TO Con JUNIOR FOR AKIKO
--- NOTE | 2020-02-25 06:19 | NUR ---
PT TRANSFER PER ACLS PROTOCOL
[2020-02-25 06:20] VITALS: BP 136/77
--- NOTE | 2020-02-25 06:20 | NUR ---
RN RECEIVING NOTES PATIENT RECEIVED FROM ER VIA RAIMUNDO. A/OX4. NO SIGNS OF DISTRESS OR DISCOMFORT. BREATHING EVEN AND UNLABORED. ON 2LPM O2 VIA NC. IV ACCESS IN RAC, PATENT AND INTACT, NO SIGNS OF REDNESS OR INFILTRATION. ORIENTED PATIENT TO UNIT AND ROOM. ATTACHED TELE MONITOR WITH SR 58 NOTED. BED IN LOW LOCKED POSITION WITH SIDE RAILS X2. CALL LIGHT WITHIN REACH. WILL ENDORSE TO AM SHIFT FOR AKIKO.
[2020-02-25] MEDS ORDERED: MAG HYDROX/AL HYDROX/SIMETH 30 ML UDC PO PRN (06:30)
[2020-02-25] MEDS ORDERED: ONDANSETRON HCL/PF 4 MG/2 ML VIAL IVP PRN (06:30)
[2020-02-25] MEDS ORDERED: ACETAMINOPHEN 325 MG TABLET PO PRN (06:30)
[2020-02-25] MEDS ORDERED: Z GUARD REMEDY 2 OZ OINT TP PRN (06:30)
[2020-02-25] MEDS ORDERED: MAGNESIUM HYDROXIDE 30 ML UDC PO PRN (06:30)
--- NOTE | 2020-02-25 07:30 | NUR ---
dev manager Notes Patient admitted for chest pain. Isolation for rule out COVID. Per conversation with the patient and her family via phone call patient tested positive for COVID two weeks ago. She was treated at OSH for COVID and quarantined for 14 day period. Per report from family OSH repeated second test and stated that she was negative for COVID. Patient 02 Saturation 100% on 2L NC. Patient complains of pain in her chest that is worsening with inspiration. She has a cough. Productive with some mucus. Mild SOB when walking short distances. She is able to ambulate to the bathroom with assistance. RAC IV 18g. Patient was given 2mg Morphine in the ER. Will continue to monitor.
[2020-02-25 08:00] VITALS: BP 124/55
[2020-02-25] MEDS: LOSARTAN POTASSIUM 25 MG TABLET PO SCH (09:00)
[2020-02-25] MEDS: METOPROLOL TARTRATE 25 MG TABLET PO SCH ×2 (09:00→16:42)
[2020-02-25] MEDS ORDERED: POTASSIUM CHLORIDE 20 MEQ TAB.PRT.SR PO SCH (11:00)
[2020-02-25 11:27] LABS: THYROID STIMULATING HORMONE 5.905 uIU/mL (0.358-3.74)
[2020-02-25 12:00] VITALS: BP_SYST 127; BP_SYST 155; BP_DIAS 78; BP_DIAS 84
[2020-02-25] MEDS: POTASSIUM CHLORIDE 20 MEQ TAB.PRT.SR PO SCH ×2 (12:26→13:30)
--- NOTE | 2020-02-25 12:30 | NUR ---
industrial roof plumber Notes Spoke with MD Bartlett regarding holding 0900 AM dose of Metoprolol and Losartan. BP was 101/50. He has authorized holding these meds. He also has given parameters to hold for SBP less then 110. We also changed 20meq KDur x 5 to 40meq x2 to minimize possible COVID exposure.
[2020-02-25] MEDS: HYDROCODONE/APAP 5/325MG 1 EACH TABLET PO PRN ×2 (14:28→21:20)
[2020-02-25 16:00] VITALS: BP 136/72
[2020-02-25] MEDS ORDERED: RIVAROXABAN 10 MG TABLET PO SCH (17:00)
--- NOTE | 2020-02-25 18:30 | NUR ---
interior design director Notes Patient admitted for chest pain. Isolation for rule out COVID. Per conversation with the patient and her family via phone call patient tested positive for COVID two weeks ago. She was treated at OSH for COVID and quarantined for 14 day period. Per report from family OSH repeated second test and stated that she was negative for COVID. Patient 02 Saturation 100% on 2L NC. Patient complains of pain in her chest that is worsening with inspiration. She has a cough. Productive with some mucus. Mild SOB when walking short distances. She is able to ambulate to the bathroom with assistance. RAC IV 18g. Patient was given 2mg Morphine in the ER, on day shift given Henderson 5-325mg at 14:28 for pain 05/23 with effective relief. Afternoon dose of Metoprolol was given to patient. Explained to patient that normal medicines she would take in the morning at once will be staggered out because dosing is different in the hospital. Will endorse to night monitor.
[2020-02-25 20:00] VITALS: BP 151/82
[2020-02-25] MEDS ORDERED: ATORVASTATIN 40 MG TABLET PO SCH (22:00)
--- NOTE | 2020-02-25 22:08 | NUR ---
LEATHA/RN ON INITIAL ROUNDING AT 1930, PATIENT WAS AWAKE, ALERT, ORIENTED, COMFORTABLE, NO DISTRESS NOTED, CALL LIGHT IN REACH. WILL MONITOR.
[2020-02-25 22:37] VITALS: BP 151/82
--- NOTE | 2020-02-25 23:00 | NUR ---
LEATHA/RN PATIENT IS SLEEPING AT THIS TIME, APPEAR COMFORTABLE, NO SIGNS OF DISTRESS NOTED, CALL LIGHT IN REACH. WILL CONTINUE TO MONITOR.
[2020-02-26] VITALS: BP 132/77
[2020-02-26 04:00] VITALS: BP 129/72
--- NOTE | 2020-02-26 06:22 | NUR ---
LEATHA/RN PATIENT IS AWAKE, ALERT, ORIENTED, COMFORTABLE, NO DISTRESS NOTED, CALL LIGHT IN REACH, ALL NEEDS ATTENDED AT THIS TIME, WILL CONTINUE TO MONITOR.
[2020-02-26 06:32] LABS: BASOPHILS # (AUTO) 0.1 /CMM (0.0-0.2); BASOPHILS % (AUTO) 1.2 % (0.0-2.0); EOSINOPHILS % (AUTO) 2.2 % (0.0-6.0); HEMATOCRIT 35 % (33-45); HEMOGLOBIN 11.5 g/dL (11.5-14.8); LYMPHOCYTES # (AUTO) 1.7 /CMM (0.8-4.8); LYMPHOCYTES % (AUTO) 31.5 % (20.0-44.0); MEAN CORPUSCULAR HGB CONC 33 g/dl (31.0-36.0); MEAN CORPUSCULAR VOLUME 84 fL (82-100); MONOCYTES # (AUTO) 0.6 /CMM (0.1-1.30); MONOCYTES % (AUTO) 10.7 % (2.0-12.0); NEUTROPHILS # (AUTO) 2.9 /CMM (1.8-8.9); NEUTROPHILS % (AUTO) 54.4 % (43.0-81.0); PLATELET COUNT (AUTO) 357 /CMM (150-450); WHITE BLOOD COUNT (AUTO) 5.4 K/uL (4.3-11.0)
[2020-02-26 07:16] LABS: THYROID STIMULATING HORMONE 5.266 uIU/mL (0.358-3.74)
[2020-02-26 07:19] LABS: CALCIUM, SERUM 8.9 mg/dL (8.5-10.1); CREATININE 0.8 mg/dL (0.6-1.3); MAGNESIUM 2.1 mg/dL (1.8-2.4); PHOSPHORUS 3.9 mg/dL (2.5-4.9)
--- NOTE | 2020-02-26 07:30 | NUR ---
RN OPENING NOTE Patient is resting in bed, A/O x4, showing no signs of acute distress or SOB, O2 97% on 3L NC. IV line in the RAC #18g s/l is clean and intact. Patient has no complaints of pain and no new concerns at this time. Bed is in lowest position, side rails x3 in upright position, call light is within reach and patient is aware of how to call for assistance when needed. Will continue with plan of care.
[2020-02-26 08:00] VITALS: BP 118/62
[2020-02-26] MEDS: METOPROLOL TARTRATE 25 MG TABLET PO SCH (09:07)
[2020-02-26] MEDS: LOSARTAN POTASSIUM 25 MG TABLET PO SCH (09:07)
[2020-02-26 12:00] VITALS: BP 127/73
--- NOTE | 2020-02-26 15:30 | NUR ---
FIRE ENGINE OPERATOR NOTE Patient is medically stable for DC. Patient is A/O x4, showing no signs of acute distress os SOB, stable on RA. Vital signs WNL. Patient's skin remains intact. IV removed, ID band removed. All belongings with patient. DC instructions provided and patient verbalized understanding. All patient needs met, all due medications given. Patient left unit ambulatory and was picked up by daughter in private car, en route to home.
== END 2020-02-26 15:30 | disposition home or self-care (01) | DRG 198 ==
LOC: ER 01:27 → TELE1 05:31
PROVIDERS: ADMIT Internal Medicine; ATTEND Internal Medicine
DX: I25.10 Atherosclerotic heart disease of native coronary artery without angina pectoris (principal); E43 Unspecified severe protein-calorie malnutrition; I48.91 Unspecified atrial fibrillation; E66.01 Morbid (severe) obesity due to excess calories; I10 Essential (primary) hypertension; Z68.42 Body mass index [BMI] 45.0-49.9, adult; I48.0 Paroxysmal atrial fibrillation; E87.6 Hypokalemia; E11.9 Type 2 diabetes mellitus without complications; Z79.01 Long term (current) use of anticoagulants; G47.33 Obstructive sleep apnea (adult) (pediatric); Z86.19 Personal history of other infectious and parasitic diseases
CPT/HCPCS: 36415; 71045-TC; 80048-TC; 80061-TC; 83735-TC; 83880; 84100-TC; 84439-TC; 84443-TC; 84484-TC; 85025-TC; 85730-TC; 87081-TC; G0378; J2270; J2405